=== PATIENT | female | born 1980 | race Two or more races ===

== ENCOUNTER 2021-07-27 12:44 | Emergency (ER) | payer MEDICAID ==
[~2021-07-27] VITALS: Ht 167.6 cm; Wt 68.0 kg
[2021-07-27 15:43] LABS: Basophils # (auto) 0 10 ^3/uL (0-0.2); Basophils % (auto) 0.6 % (0.0-2.0); Eosinophils # (auto) 0.1 10 ^3/uL (0-0.8); Eosinophils % (auto) 1.1 % (0.0-7.0); Hematocrit 44.5 % (36.0-46.0); Hemoglobin 14.8 g/dL (12.2-16.2); Lymphocytes # (auto) 2.9 10 ^3/uL (0.4-5.4); Lymphocytes % (auto) 33.7 % (10.0-50.0); Mean Corpuscular Hemoglobin 31.4 pg (28.0-32.0); Mean Corpuscular Hgb Conc. 33.2 g/dL (32.0-36.0); Mean Corpuscular Volume 94.5 fL (80.0-100.0); Monocytes # (auto) 0.6 10 ^3/uL (0-1.3); Monocytes % (auto) 6.5 % (0.0-12.0); Neutrophils # (auto) 4.9 10 ^3/uL (1.6-8.6); Neutrophils % (auto) 58.1 % (37.0-80.0); Nucleated Red Blood Cells % 0.1 %; Red Blood Cells 4.71 10^6/uL (4.0-5.20); Red Cell Distribution Width 13.3 % (11.8-14.3); White Blood Cell 8.5 10^3/uL (4.4-10.8)
[2021-07-27 15:57] LABS: Anion Gap 3 (5-15); Blood Urea Nitrogen 13 mg/dL (7-18); Calcium 9.4 mg/dL (8.5-10.1); Carbon Dioxide 28 mmol/L (21-32); Chloride 106 mmol/L (98-107); Glucose 70 mg/dL (74-106); Potassium 4.2 mmol/L (3.5-5.1); Sodium 137 mmol/L (136-145)
[2021-07-27 16:15] LABS: Alanine Aminotransferase 23 U/L (13-56); Alkaline Phosphatase 86 U/L (45-117); Aspartate Aminotransferase 14 U/L (15-37); BUN/Creatinine Ratio 17.1; Bilirubin, Total 0.3 mg/dL (0.2-1.0); GFR African American 109 mL/min; GFR Non-African American 90 mL/min; Total Protein 7.5 g/dL (6.4-8.2)
[2021-07-28 07:45] VITALS: BP 80/57
== END 2021-07-28 11:34 | disposition left against medical advice (07) ==
LOC: ER 12:44
DX: F41.9 Anxiety disorder, unspecified (principal)
CPT/HCPCS: 36415; 80053; 84484; 85025; 93005

== ENCOUNTER 2021-10-08 21:04 | Emergency (ER) | payer MEDICAID, OTHER ==
[~2021-10-08] VITALS: Ht 170.2 cm; Wt 2.5 kg
[2021-10-09 00:52] VITALS: BP 135/70
[2021-10-09 01:53] LABS: Carbon Dioxide 27 mmol/L (21-32); Chloride 106 mmol/L (98-107); Potassium 4.6 mmol/L (3.5-5.1); Sodium 140 mmol/L (136-145)
[2021-10-09 01:54] LABS: Alanine Aminotransferase 25 U/L (13-56); Albumin 3.5 g/dL (3.4-5.0); Anion Gap 7 (5-15); Aspartate Aminotransferase 16 U/L (15-37); BUN/Creatinine Ratio 11.1; Blood Alcohol < 3.0 mg/dL (0-5); Blood Urea Nitrogen 9 mg/dL (7-18); GFR African American 101 mL/min; GFR Non-African American 84 mL/min; Glucose 97 mg/dL (74-106)
[2021-10-09 01:57] LABS: Alkaline Phosphatase 111 U/L (45-117); Bilirubin, Total 0.2 mg/dL (0.2-1.0); Total Protein 6.8 g/dL (6.4-8.2)
[2021-10-09 02:06] LABS: Basophils # (auto) 0 10 ^3/uL (0-0.2); Basophils % (auto) 0.6 % (0.0-2.0); Eosinophils # (auto) 0.2 10 ^3/uL (0-0.8); Eosinophils % (auto) 2.1 % (0.0-7.0); Hematocrit 42.9 % (36.0-46.0); Hemoglobin 14.6 g/dL (12.2-16.2); Lymphocytes # (auto) 2.2 10 ^3/uL (0.4-5.4); Lymphocytes % (auto) 28.8 % (10.0-50.0); Mean Corpuscular Hemoglobin 31.5 pg (28.0-32.0); Mean Corpuscular Hgb Conc. 34.1 g/dL (32.0-36.0); Mean Corpuscular Volume 92.3 fL (80.0-100.0); Monocytes # (auto) 0.6 10 ^3/uL (0-1.3); Monocytes % (auto) 7.9 % (0.0-12.0); Neutrophils # (auto) 4.6 10 ^3/uL (1.6-8.6); Neutrophils % (auto) 60.6 % (37.0-80.0); Nucleated Red Blood Cells % 0.2 %; Red Blood Cells 4.65 10^6/uL (4.0-5.20); White Blood Cell 7.6 10^3/uL (4.4-10.8)
== END 2021-10-09 06:17 | disposition home or self-care (01) ==
LOC: EDBD 21:04 → ER 21:04
DX: G43.909 Migraine, unspecified, not intractable, without status migrainosus (principal); I10 Essential (primary) hypertension; Z59.00 Homelessness unspecified
CPT/HCPCS: 36415; 70450; 80053; 80320; 85025; 85610

== ENCOUNTER 2023-07-25 19:19 | Emergency (ER) | payer OTHER ==
[~2023-07-25] VITALS: Ht 167.6 cm; Wt 70.5 kg
[2023-07-25 19:24] VITALS: BP 141/88; PULSE 97; RESP 16; O2SAT 99
[2023-07-25] MEDS ORDERED: LORazepam 0.5 MG TAB PO ONE (20:30)
[2023-07-25 20:38] LABS: Basophils # (auto) 0 10 ^3/uL (0-0.2); Basophils % (auto) 0.7 % (0.0-2.0); Eosinophils # (auto) 0.2 10 ^3/uL (0-0.8); Eosinophils % (auto) 2.3 % (0.0-7.0); Hematocrit 38.8 % (36.0-46.0); Hemoglobin 13.1 g/dL (12.2-16.2); Lymphocytes # (auto) 2.9 10 ^3/uL (0.4-5.4); Lymphocytes % (auto) 44.8 % (10.0-50.0); Mean Corpuscular Hgb Conc. 33.7 g/dL (32.0-36.0); Mean Corpuscular Volume 92.2 fL (80.0-100.0); Monocytes # (auto) 0.4 10 ^3/uL (0-1.3); Monocytes % (auto) 6.9 % (0.0-12.0); Neutrophils % (auto) 45.3 % (37.0-80.0); Nucleated Red Blood Cells % 0.1 %; Red Blood Cells 4.21 10^6/uL (4.0-5.20); Red Cell Distribution Width 13.3 % (11.8-14.3); White Blood Cell 6.5 10^3/uL (4.4-10.8)
[2023-07-25 21:46] LABS: Alanine Aminotransferase 17 U/L (7-40); Albumin 4.2 g/dL (3.2-4.8); Alkaline Phosphatase 85 U/L (46-116); Anion Gap 8 (5-15); Aspartate Aminotransferase 17 U/L (13-40); BUN/Creatinine Ratio 11.4 (10.0-20.0); Blood Urea Nitrogen 8 mg/dL (9-23); Calcium 9.3 mg/dL (8.5-10.1); Carbon Dioxide 24 mmol/L (20-30); Chloride 108 mmol/L (98-107); Glucose 82 mg/dL (74-106); Potassium 3.9 mmol/L (3.5-5.1); Sodium 140 mmol/L (136-145)
[2023-07-25 21:47] LABS: Bilirubin, Total 0.3 mg/dL (0.2-1.0); Total Protein 6.7 g/dL (5.7-8.2)
[2023-07-25 21:55] LABS: Acetaminophen < 2.0 UG/ML (10.0-20.0)
[2023-07-25 21:56] LABS: Salicylate < 3.0 mg/dL (2.8-20.0)
== END 2023-07-26 02:23 | disposition left against medical advice (07) ==
LOC: EDBD 19:19 → ER 19:24
DX: R45.851 Suicidal ideations (principal); Z88.0 Allergy status to penicillin; Z79.899 Other long term (current) drug therapy
CPT/HCPCS: 36415; 71045; 80053; 80320; 80329; 85025

== ENCOUNTER 2025-01-01 22:12 | Emergency (ER) | payer MEDICAID, OTHER ==
[~2025-01-01] VITALS: Ht 170.2 cm; Wt 68.2 kg
--- NOTE | 2025-01-01 22:25 | ED.PDOC ---
SOB-HPI HPI Comments 44 year old female presents to the ED with a chief complaint of shortness of breath onset today (01/01/25). Patient states she noticed shortness of breath about 2 hours ago. She is a poor historian. PMHx anxiety. Denies nausea, vomiting, diarrhea, chest pain, fever, chills, congestion, headache, dizziness. No other symptoms or modifying factors present at this time. Chief Complaint: Shortness of Breath Time Seen by MD: 22:20 Primary Care Provider: LIZETTE Bundy notes: Medications, Allergies Information Source: Patient, Emergency Med Personnel Mode of Arrival: EMS Severity: Moderate Timing: Hours Duration: Since onset Context: At Rest PE Risk Factors: None History of: None Prehospital treatment: None Modifying Factors: Anxiety Associated Signs and Symptoms: None Radiation: No Radiation Past Medical History PAST MEDICAL HISTORY: Anxiety Surgical History: Denies all surgeries RAMP AGENT History: No Pertinent RAMP AGENT History Family History Family History: Reviewed,noncontributory to illness Social History Smoker: Non-Smoker Alcohol: Denies ETOH Use Drugs: Denies Drug Use Lives In: Home Constitutional: denies: chills, diaphoresis, fatigue, fever, malaise, sweats, weakness, others EENTM: denies: blurred vision, double vision, ear bleeding, ear discharge, ear drainage, ear pain, ear ringing, eye pain, eye redness, hearing loss, mouth pain, mouth swelling, nasal discharge, nose bleeding, nose congestion, nose pain, photophobia, tearing, throat pain, throat swelling, voice changes, others Respiratory: reports: shortness of breath; denies: cough, hemoptysis, orthopnea, SOB at rest, SOB with excertion, stridor, wheezing, others Cardiovascular: denies: chest pain, dizzy spells, diaphoresis, Dyspnea on exertion, edema, irregular heart beat, left arm pain, lightheadedness, palpitations, PND, syncope, others Gastrointestinal: denies: abdomen distended, abdominal pain, blood streaked bowels, constipated, diarrhea, dysphagia, difficulty swallowing, hematemesis, melena, nausea, poor appetite, poor fluid intake, rectal bleeding, rectal pain, vomiting, others Genitourinary: denies: abnormal vagina bleeding, burning, dyspareunia, dysuria, flank pain, frequency, hematuria, incontinence, pain, , vagina discharge, urgency, others Neurological: denies: dizziness, fainting, headache, left sided numbness, left sided weakness, numbness, paresthesia, pre-existing deficit, right sided numbness, right sided weakness, seizure, speech problems, tingling, tremors, weakness, others Musculoskeletal: denies: back pain, gout, joint pain, joint swelling, muscle pain, muscle stiffness, neck pain, others Integumetry: denies: bruises, change in color, change in hair/nails, dryness, laceration, lesions, lumps, rash, wounds, others Allergic/Immunocompromised: denies: Difficulty Healing, Frequent Infections, Hives, Itching, others Hematologic/Lymphatic: denies: anemia, blood clots, easy bleeding, easy bruising, swollen glands, others Endocrine: denies: excessive hunger, excessive sweating, excessive thirst, excessive urination, flushing, intolerance to cold, intolerance to heat, unexplained weight gain, unexplained weight loss, others Psychiatric: denies: anxiety, bipolar disorder, depression, hopeless, panic disorder, schizophrenia, sleepless, suicidal, others All Other Systems: Reviewed and Negative Physical Exam General Appearance: Moderate Distress, Normal HEENT: Normal ENT Inspection, Pharynx Normal, TMs Normal Neck: Full Range of Motion, Non-Tender, Normal, Normal Inspection Respiratory: Chest Non-Tender, Lungs Clear, No Accessory Muscle Use, No Resp iratory Distress, Normal Breath Sounds Cardiovascular: No Edema, No JVD, No Murmur, No Gallop, Normal Peripheral Pulses, Regular Rate/Rhythm Breast Exam: Deferred Gastrointestinal: No Organomegaly, Non Tender, No Pulsatile Mass, Normal Bowel Sounds, Soft Genitalia: Deferred Pelvic: Deferred Rectal: Deferred Extremities: No calf tenderness, Normal capillary refill, Normal inspection, Normal range of motion, Non-tender, No pedal edema Musculoskeletal : Apperance: Normal 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 Was a procedure done?: No Differential Dx Differential Diagnosis: Anxiety, Asthma, Bronchitis, CHF, COPD X-Ray, Labs, Meds, VS Vital Signs Date Time Temp Pulse Resp B/P (MAP) Pulse Ox O2 Delivery O2 Flow Rate FiO2 01/02/25 08:00 99.0 97 16 111/63 (79) 92 99.0 01/02/25 08:00 97 16 92 Room Air* 0 01/02/25 07:15 85 18 98 Room Air* 0 01/02/25 07:15 98.0 84 17 130/90 (103) 96 98.0 01/02/25 00:53 96 18 95 Room Air* 0 01/02/25 00:51 98.2 96 16 138/95 (109) 95 98.2 01/01/25 22:15 98.2 93 16 131/82 (98) 96 98.2 01/01/25 22:14 91 Lab Test 01/02/25 01:31 01/01/25 23:33 01/01/25 22:28 Range/Units Troponin I High Sensitivity 21 18 16 </=34 ng/L Salicylates Level < 3.0 -30 mg/dL Acetaminophen Level < 2.0 L 10.0-20.0 UG/ML Plasma/Serum Blood Alcohol < 3.0 <10 mg/dL White Blood Count 8.3 4.4-10.8 10^3/uL Red Blood Count 4.94 4.0-5.20 10^6/uL Hemoglobin 15.4 12.2-16.2 g/dL Hematocrit 45.6 36.0-46.0 % Mean Corpuscular Volume 92.3 80.0-100.0 fL Mean Corpuscular Hemoglobin 31.2 28.0-32.0 pg Mean Corpuscular Hemoglobin Concent 33.8 32.0-36.0 g/dL Red Cell Distribution Width 13.4 11.8-14.3 % Platelet Count 327 140-450 10^3/uL Mean Platelet Volume 6.8 L 6.9-10.8 fL Neutrophils (%) (Auto) 67.8 37.0-80.0 % Lymphocytes (%) (Auto) 23.8 10.0-50.0 % Monocytes (%) (Auto) 7.2 0.0-12.0 % Eosinophils (%) (Auto) 0.6 0.0-7.0 % Basophils (%) (Auto) 0.6 0.0-2.0 % Neutrophils # (Auto) 5.7 1.6-8.6 10 ^3/uL Lymphocytes # (Auto) 2.0 0.4-5.4 10 ^3/uL Monocytes # (Auto) 0.6 0-1.3 10 ^3/uL Eosinophils # (Auto) 0 0-0.8 10 ^3/uL Basophils # (Auto) 0.1 0-0.2 10 ^3/uL Nucleated Red Blood Cells 0.2 % Sodium Level 138 136-145 mmol/L Potassium Level 4.3 3.5-5.1 mmol/L Chloride Level 104 98-107 mmol/L Carbon Dioxide Level 26 20-31 mmol/L Anion Gap 8 5-15 Blood Urea Nitrogen 13 9-23 mg/dL Creatinine 1.01 0.550-1.02 mg/dL Glomerular Filtration Rate Calc 71 >90 mL/min BUN/Creatinine Ratio 12.9 10.0-20.0 Serum Glucose 112 H 74-106 mg/dL Calcium Level 10.3 8.7-10.4 mg/dL [place] [id number] Ph: [phone] DIAGNOSTIC IMAGING Diagnostic Imaging Report : [id number] Signed PATIENT: HAILEY ANTHONYACCT: [id number] UNIT: [id number] : 1980 LOC: ER ROOM / BED: / AGE / SEX: 44 / F ADM STATUS: REG ER SERVICE 21 ORDERING PHYSICIAN: JODIE CORONA MD PROCEDURE(s): CXRP - CHEST PORTABLE REASON: sob ORDER NUMBER(s): [id number], ACCESSION NUMBER(s): [id number] CHEST RADIOGRAPH Indication: sob Technique: Single frontal view of the chest was obtained Comparison: XY CHEST XRAY 1 VIEW on DOS: 07/25/23 FINDINGS: Lines and Tubes: None Lungs: No focal consolidation. Air-filled bowel below the right diaphragm versus a deep sulcus sign suggesting a pneumothorax if of clinical concern recommend CT of the chest. Pleura: No effusion. No pneumothorax. Cardiomediastinal contours: Unremarkable Bones: No acute osseous abnormality. IMPRESSION: 1. Air-filled bowel versus deep sulcus sign on the right suggesting a pneumothorax consider CT chest for further evaluation if of clinical concern. ATED BY: ALEA SKINNER Jr., DO DICTATED DATE/TIME: 01/01/252252 SIGNED BY: ALEA SKINNER Jr., SIGNED DATE/TIME: 01/01/252252 CC: Patient alert. No sign of distress. Anxiety. Vitals stable. Denies shortness a breath. Denies abdominal pain. Denies nausea vomiting pain States that she is feeling much better. Psychiatrist has cleared the patient. She is willing to go home. CT scan of the chest reviewed does not show any acute process. Explained to the patient. Was told to follow up with her psychiatrist. Was told to follow up with her primary care physician. Was told to come back if there is any problem. Time of 1ST Reevaluation: 22:50 Reevaluation 1ST: Unchanged Time of 2ND Reevaluation: 13:25 Reevaluation 2ND: Improved Patient Education/Counseling: Diagnosis, Treatment, Prognosis Family Education/Counseling: No Family Present Additional Information The following tests were ordered, and results were reviewed by me:EKG, BMP, CBC, TROP-x3, XY CHEST Additional Information was gathered from interviewing the following independent historians: EMS I reviewed and agreed with the following test results read by other providers: XY CHEST I discussed treatment and results with medical personnel and: Patient Departure 1 Departure Time of Disposition: 13:31 Impression: Primary Impression: Suicidal ideation Additional Impression: Anxiety Disposition: 01 HOME / SELF CARE / HOMELESS Condition: Good Discharged With: Self Critical Care Note Critical Care Time?: No Stability Stability form required: No Heart Score Heart Score: Heart Score Response (Comments) Value History N/A 0 EKG N/A 0 Age N/A 0 Risk Factors N/A 0 Troponin N/A 0 Total 0 I personally scribed for JODIE CORONA MD ([email or web address]) on 01/01/25 at 22:25. Electronically submitted by Leatha Nye ([email or web address]). I personally scribed for JODIE CORONA MD ([email or web address]) on 01/01/25 at 22:25. Electronically submitted by Leatha Nye ([email or web address]). I personally scribed for JODIE CORONA MD ([email or web address]) on 01/01/25 at 23:08. Electronically submitted by Leatha Nye ([email or web address]). JODIE CORONA MD Jan 01, 2025 22:25 EDDI EHNSLEY MD Jan 02, 2025 13:26
[2025-01-01 22:41] LABS: Basophils # (auto) 0.1 10 ^3/uL (0-0.2); Basophils % (auto) 0.6 % (0.0-2.0); Eosinophils # (auto) 0 10 ^3/uL (0-0.8); Eosinophils % (auto) 0.6 % (0.0-7.0); Hematocrit 45.6 % (36.0-46.0); Hemoglobin 15.4 g/dL (12.2-16.2); Lymphocytes % (auto) 23.8 % (10.0-50.0); Mean Corpuscular Hemoglobin 31.2 pg (28.0-32.0); Mean Corpuscular Hgb Conc. 33.8 g/dL (32.0-36.0); Mean Corpuscular Volume 92.3 fL (80.0-100.0); Monocytes # (auto) 0.6 10 ^3/uL (0-1.3); Monocytes % (auto) 7.2 % (0.0-12.0); Neutrophils # (auto) 5.7 10 ^3/uL (1.6-8.6); Neutrophils % (auto) 67.8 % (37.0-80.0); Nucleated Red Blood Cells % 0.2 %; Platelet Count (auto) 327 10^3/uL (140-450); Red Blood Cells 4.94 10^6/uL (4.0-5.20); Red Cell Distribution Width 13.4 % (11.8-14.3); White Blood Cell 8.3 10^3/uL (4.4-10.8)
[2025-01-01 22:45] LABS: Chloride 104 mmol/L (98-107); Potassium 4.3 mmol/L (3.5-5.1); Sodium 138 mmol/L (136-145)
[2025-01-01 22:46] LABS: Anion Gap 8 (5-15); Calcium 10.3 mg/dL (8.7-10.4); Carbon Dioxide 26 mmol/L (20-31)
[2025-01-01 22:51] LABS: BUN/Creatinine Ratio 12.9 (10.0-20.0); Blood Urea Nitrogen 13 mg/dL (9-23)
--- NOTE | 2025-01-01 22:56 | DVH ---
CHEST RADIOGRAPH Indication: sob Technique: Single frontal view of the chest was obtained Comparison: XY CHEST XRAY 1 VIEW on DOS: 07/25/23 FINDINGS: Lines and Tubes: None Lungs: No focal consolidation. Air-filled bowel below the right diaphragm versus a deep sulcus sign s uggesting a pneumothorax if of clinical concern recommend CT of the chest. Pleura: No effusion. No pneumothorax. Cardiomediastinal contours: Unremarkable Bones: No acute osseous abnormality. IMPRESSION: 1. Air-filled bowel versus deep sulcus sign on the right suggesting a pneumothorax consider CT chest for further evaluation if of clinical concern.
[2025-01-01 23:01] LABS: Glucose 112 mg/dL (74-106)
--- NOTE | 2025-01-01 23:57 | DVH ---
XY CHEST TWO VIEWS ROUTINE CLINICAL HISTORY: better evaluate initial x-ray finding COMPARISON: Prior study of today's date TECHNIQUE: Frontal and lateral view of the chest was obtained FINDINGS: There is air under the right diaphragm it is probably in the hepatic flexure and not free air but CT of the abdomen may be appropriate. Lungs are clear trachea is midline elma is sharp heart size is normal IMPRESSION: 1. There is probably interposed colon between the dome of the liver and the right diaphragm but CT ex amination of the chest might be appropriate Dr. Najera was told to these findings on January 01, 2025 11:50 p.m..
[2025-01-02 00:13] LABS: Acetaminophen < 2.0 UG/ML (10.0-20.0); Salicylate < 3.0 mg/dL (-30)
[2025-01-02] MEDS: IOHEXOL 300 MG/ML 100ML BOTTLE IJ ONE (00:26)
[2025-01-02 00:53] VITALS: PULSE 96; RESP 18; O2SAT 95
--- NOTE | 2025-01-02 01:20 | DVH ---
CT SCAN CHEST ABDOMEN AND PELVIS WITH CONTRAST CLINICAL HISTORY: Abnormal findings on chest radiographs. Possible pneumothorax. TECHNIQUE: Helical axial images are obtained from the thoracic inlet through the pelvis with intraven ous contrast. Coronal and sagittal reformatted images were generated. One or more of the following ra diation dose reduction techniques were used for this examination: automated exposure control, adjustm ent of the mA and/or kV according to patient size, use of iterative reconstruction technique. COMPARISON: Chest radiographs obtained earlier the same day. FINDINGS: CHEST: Mediastinum: The heart is normal in size. No pericardial effusion. No appreciable mediastinal adenop athy. No evidence of central pulmonary embolism. Lung parenchyma: Scattered dependent atelectasis/ scarring in the lung bases. No dominant consolidati ons. Pleura: No sizable pleural effusions or pneumothorax. Chest wall and axillae: No appreciable axillary adenopathy. ABDOMEN AND PELVIS: Liver: No discrete hepatic lesions identified. Gallbladder and biliary system: No sizable, radiopaque cholelithiasis or biliary ductal dilatation. Pancreas: Negative. Spleen: Negative. Adrenal Glands: Negative. Kidneys and collecting system: No hydroureteronephrosis. Retroperitoneum: No evidence of abdominal aortic aneurysm. Lymph nodes: No discretely enlarged lymph nodes identified. Bowel: No evidence of bowel obstruction. No free intraperitoneal air or fluid identified. Visualized appendix is normal caliber. Pelvis: No sizable bladder calculus. Osseous structures: No destructive osseous lesions identified. IMPRESSION: No sizable pleural effusions or pneumothorax. No bowel obstruction, free intraperitoneal air/ fluid or sizable inflammatory collections identified at this time. HS:Y
--- NOTE | 2025-01-02 06:39 | ECG ---
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
[2025-01-02 07:15] VITALS: PULSE 85; RESP 18; O2SAT 98
[2025-01-02 08:00] VITALS: PULSE 97; RESP 16; O2SAT 92
--- NOTE | 2025-01-02 12:30 | DVHINCON2 ---
Date of Service if different f: Jan 02, 2025 Consultation (ASHTON) Labs Laboratory Tests Test 01/01/25 22:28 01/01/25 23:33 01/02/25 01:31 White Blood Count 8.3 10^3/uL (4.4-10.8) Red Blood Count 4.94 10^6/uL (4.0-5.20) Hemoglobin 15.4 g/dL (12.2-16.2) Hematocrit 45.6 % (36.0-46.0) Mean Corpuscular Volume 92.3 fL (80.0-100.0) Mean Corpuscular Hemoglobin 31.2 pg (28.0-32.0) Mean Corpuscular Hemoglobin Concent 33.8 g/dL (32.0-36.0) Red Cell Distribution Width 13.4 % (11.8-14.3) Platelet Count 327 10^3/uL (140-450) Mean Platelet Volume 6.8 fL (6.9-10.8) Neutrophils (%) (Auto) 67.8 % (37.0-80.0) Lymphocytes (%) (Auto) 23.8 % (10.0-50.0) Monocytes (%) (Auto) 7.2 % (0.0-12.0) Eosinophils (%) (Auto) 0.6 % (0.0-7.0) Basophils (%) (Auto) 0.6 % (0.0-2.0) Neutrophils # (Auto) 5.7 10 ^3/uL (1.6-8.6) Lymphocytes # (Auto) 2.0 10 ^3/uL (0.4-5.4) Monocytes # (Auto) 0.6 10 ^3/uL (0-1.3) Eosinophils # (Auto) 0 10 ^3/uL (0-0.8) Basophils # (Auto) 0.1 10 ^3/uL (0-0.2) Nucleated Red Blood Cells 0.2 % Sodium Level 138 mmol/L (136-145) Potassium Level 4.3 mmol/L (3.5-5.1) Chloride Level 104 mmol/L (98-107) Carbon Dioxide Level 26 mmol/L (20-31) Anion Gap 8 (5-15) Blood Urea Nitrogen 13 mg/dL (9-23) Creatinine 1.01 mg/dL (0.550-1.02) Glomerular Filtration Rate Calc 71 mL/min (>90) BUN/Creatinine Ratio 12.9 (10.0-20.0) Serum Glucose 112 mg/dL (74-106) Calcium Level 10.3 mg/dL (8.7-10.4) Salicylates Level < 3.0 mg/dL (-30) Acetaminophen Level < 2.0 UG/ML (10.0-20.0) Plasma/Serum Blood Alcohol < 3.0 mg/dL (<10) Troponin I High Sensitivity 21 ng/L (</=34) Appetite: Good Appearance: Stated age, Disheveled Psychomotor activity: WNL Behavioral: Cooperative Eye contact: Appropriate Speech: WNL Affect: Guarded Mood: Euthymic Thought processes: Linear/Goal-directed Thought content: WNL Suicidal ideations: Absent Homicidal ideations: Absent Orientation: Person, Place, Time, Situation Memory intact: Recent Intellect: Average Abstractability: WNL Concentration: Adequate Attention: Adequate Judgement: WNL Insight: Fair Vitals Vital Signs Date Time Temp Pulse Resp B/P (MAP) Pulse Ox O2 Delivery O2 Flow Rate FiO2 01/02/25 08:00 99.0 97 16 111/63 (79) 92 99.0 01/02/25 08:00 Room Air* 0 21 Medication adjusted: No Diagnosis: unspecified anxiety disorder Plan : Patient denies suicidal/homicidal ideation, and may discharge home Discussed if having Si/Hi in th future, return to ED and she verbalized understanding History of Present Illness Reason for Consult : reports suicidal ideation HPI : This is a 44-year-old female with prior history of anxiety, presented to the hospital with chief complaint of shortness of breath and later reported suicidal ideation. Patient is evaluated via Telepsychiatry. She reports suddenly felt suicidal because upset they did too many tests and did not receive medication as promised. She presently denies suicidal or homicidal ideation. She denies feeling depressed, hopeless or anhedonia. She reports sleep and appetite are intact. She denies any auditory or visual hallucinations or paranoia thoughts. She is requesting to go home. Past Psychiatric History : She denies past psychiatric diagnosis, admissions or 5150 holds. She denies prior suicide attempts. She denies connection to outpatient mental health services. She denies any current or past psychotropic medication use Past Medical History : She denies Social History : She lives with a friend. She is single, unemployed. She has a 16-year-old daughter living with her father. She denies any hx or current substance use. No toxicology performed. She denies any known family history. HEIDI MAN DNP Jan 02, 2025 12:30
[2025-01-02 13:45] VITALS: BP 116/88; PULSE 86; RESP 18; TEMP 97.9; O2SAT 99
== END 2025-01-02 13:46 | disposition home or self-care (01) ==
LOC: EDBD 22:12 → ER 22:12
DX: R45.851 Suicidal ideations (principal); F41.9 Anxiety disorder, unspecified; R06.02 Shortness of breath; Z79.899 Other long term (current) drug therapy
CPT/HCPCS: 36415; 71045; 71046; 71260; 74177; 80048; 80320; 80329; 84484; 85025; 93005; 99285; Q9967